=== PATIENT | male | born 1975 | race Caucasian/White ===

== ENCOUNTER 2017-05-24 05:45 | Emergency (ER) | payer BC ==
[~2017-05-24] VITALS: Ht 177.8 cm; Wt 81.6 kg
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
--- NOTE | 2017-05-24 06:32 | NUR ---
Patient discharged to home in stable condition. Written and verbal after care instructions given. Patient verbalizes understanding of instruction. Patient ambulatory with a steady gait.
[2017-05-24 06:33] VITALS: BP 128/66
== END 2017-05-24 06:34 | disposition home or self-care (01) ==
LOC: ER 05:59
DX: H66.91 Otitis media, unspecified, right ear (principal)
CPT/HCPCS: 99283; A4606; Z7610